=== PATIENT | female | born 1980 | race Caucasian/White ===

== ENCOUNTER 2018-07-09 05:51 | Day surgery (SDC) | payer MEDICAID ==
[2018-07-09 07:19] LABS: ADD MAN DIFF? NO
[2018-07-09 07:25] LABS: BASOPHIL # 0.1 10^3/ul (0.0-0.1); BASOPHILS % 0.9 % (0.0-2.0); EOSINOPHILS # 0.5 10^3/ul (0.0-0.5); EOSINOPHILS % 8.6 % (0.0-7.0); HEMATOCRIT 38.7 % (37.0-47.0); HEMOGLOBIN 12.5 g/dl (12.0-16.0); LYMPHOCYTES % 35.9 % (15.0-51.0); MEAN CORPUSCULAR HEMOGLOBIN 26.1 pg (29.0-33.0); MEAN CORPUSCULAR HGB CONC 32.3 g/dl (32.0-37.0); MEAN CORPUSCULAR VOLUME 80.8 fl (82.0-101.0); MEAN PLATELET VOLUME 10.1 fl (7.4-10.4); MONOCYTE # 0.4 10^3/ul (0.3-0.9); MONOCYTES % 6.6 % (0.0-11.0); NEUTROPHIL # 2.6 10^3/ul (1.6-7.5); NEUTROPHILS % 47.6 % (39.0-77.0); PLATELET COUNT 272 10^3/UL (140-415); RED BLOOD COUNT 4.79 10^6/ul (4.20-5.40); RED CELL DISTRIBUTION WIDTH 14.6 % (11.5-14.5)
[2018-07-09 07:25] LABS: WHITE BLOOD COUNT 5.5 10^3/ul (4.8-10.8)
[2018-07-09] MEDS ORDERED: SUCCINYLCHOLINE CHLORIDE 100 MG/5 ML SYG IV (07:38)
[2018-07-09] MEDS ORDERED: NEOSTIGMINE 3 MG/3 ML SYRINGE (07:38)
[2018-07-09] MEDS ORDERED: LIDOCAINE 2% (SDV) 5 ML INJ (07:38)
[2018-07-09] MEDS ORDERED: MEPERIDINE 100 MG INJ (07:38)
[2018-07-09] MEDS ORDERED: GLYCOPYRROLATE 0.4 MG INJ (07:38)
[2018-07-09] MEDS ORDERED: PROPOFOL 0 ML (07:38)
[2018-07-09] MEDS ORDERED: ROCURONIUM 50 MG INJ (07:38)
== END 2018-07-09 10:30 | disposition home or self-care (01) ==
LOC: SDS 05:51
DX: Z30.2 Encounter for sterilization (principal); Z53.8 Procedure and treatment not carried out for other reasons
CPT/HCPCS: 84702; 85025; 86850; 86900; 86901

== ENCOUNTER 2018-10-01 09:17 | Day surgery (SDC) | payer MEDICAID ==
[2018-10-01 10:08] LABS: ADD MAN DIFF? NO
[2018-10-01 14:13] LABS: WHITE BLOOD COUNT 5.8 10^3/ul (4.8-10.8)
[2018-10-01 14:13] LABS: BASOPHILS % 0.7 % (0.0-2.0); EOSINOPHILS # 0.6 10^3/ul (0.0-0.5); EOSINOPHILS % 10.8 % (0.0-7.0); HEMATOCRIT 38.8 % (37.0-47.0); HEMOGLOBIN 12.8 g/dl (12.0-16.0); LYMPHOCYTES # 1.7 10^3/ul (0.8-2.9); LYMPHOCYTES % 29.9 % (15.0-51.0); MEAN CORPUSCULAR HEMOGLOBIN 27.5 pg (29.0-33.0); MEAN CORPUSCULAR VOLUME 83.3 fl (82.0-101.0); MONOCYTE # 0.4 10^3/ul (0.3-0.9); MONOCYTES % 6.3 % (0.0-11.0); NEUTROPHILS % 52.1 % (39.0-77.0); PLATELET COUNT 276 10^3/UL (140-415); RED BLOOD COUNT 4.66 10^6/ul (4.20-5.40); RED CELL DISTRIBUTION WIDTH 14.3 % (11.5-14.5)
== END 2018-10-01 10:20 | disposition home or self-care (01) ==
LOC: SDS 09:17
DX: Z30.2 Encounter for sterilization (principal); Z53.8 Procedure and treatment not carried out for other reasons
CPT/HCPCS: 84702; 85025; 86850; 86900; 86901